=== PATIENT | male | born 1995 | race Caucasian/White ===

== ENCOUNTER 2016-06-09 10:17 | Emergency (ER) | payer OTHER ==
[~2016-06-09] VITALS: Ht 185.4 cm; Wt 65.8 kg
[2016-06-09] MEDS ORDERED: ZPAK PO (11:48)
[2016-06-09] MEDS ORDERED: TESSALON PERLE100 MG PO (11:52)
[2016-06-09] MEDS ORDERED: ZOFRAN ODT4 MG PO (11:57)
[2016-06-09 12:04] VITALS: BP 107/60
== END 2016-06-09 12:05 | disposition home or self-care (01) ==
LOC: ER 10:17
DX: J18.8 Other pneumonia, unspecified organism (principal); J02.8 Acute pharyngitis due to other specified organisms; F17.210 Nicotine dependence, cigarettes, uncomplicated